=== PATIENT | male | born 1990 | race Two or more races ===

== ENCOUNTER 2020-09-23 14:06 | Inpatient (IN) | payer MEDICAID, OTHER ==
[~2020-09-23] VITALS: Ht 175.3 cm; Wt 82.2 kg
[2020-09-23] MEDS ORDERED: SODIUM CHLORIDE 0.9% 1,000 ML IV ONE ×4 (14:30→15:45)
[2020-09-23 14:49] LABS: Basophils # (auto) 0.1 10 ^3/uL (0-0.2); Basophils % (auto) 0.5 % (0.0-2.0); Eosinophils # (auto) 0.1 10 ^3/uL (0-0.8); Eosinophils % (auto) 0.7 % (0.0-7.0); Hematocrit 44.1 % (41.0-53.0); Hemoglobin 14.8 g/dL (13.5-17.5); Lymphocytes # (auto) 2.1 10 ^3/uL (0.4-5.4); Lymphocytes % (auto) 19.3 % (10.0-50.0); Mean Corpuscular Hemoglobin 29.8 pg (28.0-32.0); Mean Corpuscular Hgb Conc. 33.5 g/dL (32.0-36.0); Mean Corpuscular Volume 89.1 fL (80.0-100.0); Monocytes # (auto) 1.2 10 ^3/uL (0-1.3); Monocytes % (auto) 10.7 % (0.0-12.0); Neutrophils # (auto) 7.7 10 ^3/uL (1.6-8.6); Neutrophils % (auto) 68.8 % (37.0-80.0); Nucleated Red Blood Cells % 0.1 %; Red Blood Cells 4.95 10^6/uL (4.5-5.90); Red Cell Distribution Width 15.1 % (11.8-14.3); White Blood Cell 11.1 10^3/uL (4.4-10.8)
[2020-09-23 15:08] LABS: Albumin 3.2 g/dL (3.4-5.0); Anion Gap 19 (5-15); Blood Urea Nitrogen 18 mg/dL (7-18); Calcium 8.8 mg/dL (8.5-10.1); Carbon Dioxide 10 mmol/L (21-32); Chloride 94 mmol/L (98-107); Potassium 3.5 mmol/L (3.5-5.1); Sodium 123 mmol/L (136-145)
[2020-09-23 15:16] LABS: Alanine Aminotransferase 16 U/L (16-61); Alkaline Phosphatase 128 U/L (45-117); Aspartate Aminotransferase 6 U/L (15-37); Bilirubin, Total 1.2 mg/dL (0.2-1.0); GFR African American 63 mL/min; GFR Non-African American 52 mL/min; Total Protein 7.5 g/dL (6.4-8.2)
[2020-09-23 15:23] LABS: Glucose 869 mg/dL (74-106)
[2020-09-23] MEDS ORDERED: INSULIN LANTUS (GLARGINE) 1 /0.01ml (100units/ml) SC ONE (15:45)
[2020-09-23] MEDS ORDERED: InsuLIN R (HUMAN) 100 UNITS in SODIUM CHL 0.9% 99 ML IV SCH ×2 (15:45→18:15)
[2020-09-23] MEDS ORDERED: DEXTROSE (50%) 50ML SYRG IV PRN ×2 (15:45→18:15)
[2020-09-23] MEDS ORDERED: cefTRIAXone 1GM/50ML D5W 50 ML IV ONE (16:45)
[2020-09-23] MEDS ORDERED: NITROGLYCERIN 0.4 MG SL TAB SL PRN (16:45)
[2020-09-23] MEDS ORDERED: MORPHINE SULF INJ 2 MG/ML SYRINGE 1ML IV PRN (16:45)
[2020-09-23] MEDS: ACCU-CHEK COMFORT CURVE STRIP VI SCH ×4 (17:34→21:00)
[2020-09-23 18:12] LABS: Urine WBC None Seen /hpf (0 - 3)
[2020-09-23] MEDS ORDERED: PROMETHAZINE HCL 25 MG/ML 1ML IV PRN (18:15)
[2020-09-23] MEDS ORDERED: traMADol HCL 50 MG TAB PO PRN (18:15)
[2020-09-23] MEDS ORDERED: ACETAMINOPHEN 500 MG TAB PO PRN (18:15)
[2020-09-23] MEDS: SODIUM CHLORIDE 0.9% 1,000 ML IV SCH (18:15)
[2020-09-23 18:40] LABS: Alcohol, Urine < 3.0 mg/dL (0-10); Amphetamine Screen, Urine NEGATIVE (NEGATIVE); Barbiturate Scree,Urine NEGATIVE (NEGATIVE); Benzodiazephine Screen, Urine NEGATIVE (NEGATIVE); Cannabinoid Screen, Urine NEGATIVE (NEGATIVE); Cocaine Screen, Urine NEGATIVE (NEGATIVE); Opiate Scree,Urine NEGATIVE (NEGATIVE); Phencyclidine Screen, Urine NEGATIVE (NEGATIVE)
[2020-09-23 19:12] LABS: Urine Bacteria NONE SEEN /hpf (None Seen); Urine Blood Negative /uL (Negative); Urine Hyaline Cast FEW /lpf (0 - 2); Urine Mucus FEW (None Seen); Urine Specific Gravity 1.018 (1.001-1.035)
[2020-09-23] MEDS ORDERED: ACCU-CHEK COMFORT CURVE STRIP VI SCH (19:30)
[2020-09-23 20:30] LABS: BUN/Creatinine Ratio 10.6; Calcium 7.8 mg/dL (8.5-10.1)
[2020-09-23 20:32] LABS: Potassium 2.2 mmol/L (3.5-5.1)
[2020-09-23] MEDS ORDERED: POTASSIUM CHL 20MEQ/100ML 100 ML IV ONE (20:39)
[2020-09-23] MEDS: POTASSIUM CHL 20MEQ/100ML 100 ML IV SCH ×2 (20:45→23:00)
[2020-09-23] MEDS ORDERED: SODIUM CHLORIDE 0.9% 1,000 ML IV SCH (22:15)
[2020-09-24] VITALS (7 sets, daily range): BP systolic 98–124; BP diastolic 57–80
[2020-09-24] MEDS: SODIUM CHLORIDE 0.9% 1,000 ML IV SCH ×4 (00:30→12:51)
[2020-09-24] MEDS: ACCU-CHEK COMFORT CURVE STRIP VI SCH ×7 (00:31→21:28)
[2020-09-24 01:03] LABS: BUN/Creatinine Ratio 8.3; Calcium 7.5 mg/dL (8.5-10.1)
[2020-09-24 01:10] LABS: Potassium 2.5 mmol/L (3.5-5.1)
[2020-09-24] MEDS ORDERED: POTASSIUM CHL 20 Meq TABLET PO ONE ×3 (01:45→20:45)
[2020-09-24 03:51] LABS: Albumin 2.5 g/dL (3.4-5.0); Calcium 6.7 mg/dL (8.5-10.1)
[2020-09-24 03:55] LABS: BUN/Creatinine Ratio 9.5
[2020-09-24 03:57] LABS: Total Protein 5.3 g/dL (6.4-8.2)
[2020-09-24 04:53] LABS: Potassium 2.3 mmol/L (3.5-5.1)
[2020-09-24] MEDS ORDERED: POTASSIUM CHL 20MEQ/100ML 100 ML IV ONE ×3 (04:58→20:45)
[2020-09-24] MEDS: POTASSIUM CHL 20MEQ/100ML 100 ML IV SCH ×3 (05:24→10:25)
[2020-09-24 07:24] LABS: Calcium 7.6 mg/dL (8.5-10.1)
[2020-09-24 07:26] LABS: BUN/Creatinine Ratio 7.9
[2020-09-24 07:47] LABS: Potassium 2.6 mmol/L (3.5-5.1)
[2020-09-24] MEDS: InsuLIN REG 1unit/0.01ml Soln (100units/ml) SC SCH ×4 (08:30→20:00)
[2020-09-24] MEDS ORDERED: INSULIN LANTUS (GLARGINE) 1 /0.01ml (100units/ml) SC SCH ×3 (10:00→22:00)
[2020-09-24] MEDS ORDERED: ALBU108A5 IN (10:51)
[2020-09-24] MEDS ORDERED: MULT-1047 PO (10:51)
[2020-09-24] MEDS ORDERED: ALBUTEROL SULF 2.5 MG/0.5ML(0.5%) NEB SOLN NEB PRN (12:00)
[2020-09-24 12:48] LABS: BUN/Creatinine Ratio 9.6; Calcium 8.5 mg/dL (8.5-10.1); Magnesium 1.9 mg/dL (1.6-2.6)
[2020-09-24 12:56] LABS: Potassium 2.9 mmol/L (3.5-5.1)
[2020-09-24] MEDS: metFORMIN HYDROCHLORIDE 850 MG TAB PO SCH (19:13)
[2020-09-25] MEDS: SODIUM CHLORIDE 0.9% 1,000 ML IV SCH (00:01)
[2020-09-25] MEDS: ACCU-CHEK COMFORT CURVE STRIP VI SCH ×6 (00:07→22:14)
[2020-09-25] MEDS: InsuLIN REG 1unit/0.01ml Soln (100units/ml) SC SCH ×6 (00:10→21:44)
[2020-09-25 05:23] VITALS: BP 112/78
[2020-09-25 06:30] LABS: Basophils # (auto) 0 10 ^3/uL (0-0.2); Basophils % (auto) 0.5 % (0.0-2.0); Eosinophils # (auto) 0.1 10 ^3/uL (0-0.8); Eosinophils % (auto) 1.6 % (0.0-7.0); Hematocrit 37.4 % (41.0-53.0); Hemoglobin 13.4 g/dL (13.5-17.5); Lymphocytes # (auto) 2.3 10 ^3/uL (0.4-5.4); Lymphocytes % (auto) 27.3 % (10.0-50.0); Mean Corpuscular Hemoglobin 30.4 pg (28.0-32.0); Mean Corpuscular Hgb Conc. 35.9 g/dL (32.0-36.0); Mean Corpuscular Volume 84.5 fL (80.0-100.0); Monocytes # (auto) 0.9 10 ^3/uL (0-1.3); Monocytes % (auto) 10.7 % (0.0-12.0); Neutrophils # (auto) 5.1 10 ^3/uL (1.6-8.6); Neutrophils % (auto) 59.9 % (37.0-80.0); Red Blood Cells 4.42 10^6/uL (4.5-5.90); Red Cell Distribution Width 15.5 % (11.8-14.3); White Blood Cell 8.5 10^3/uL (4.4-10.8)
[2020-09-25 06:43] LABS: Calcium 8.3 mg/dL (8.5-10.1); Magnesium 1.8 mg/dL (1.6-2.6)
[2020-09-25 06:50] LABS: Albumin 2.6 g/dL (3.4-5.0); BUN/Creatinine Ratio 10.8
[2020-09-25 07:03] LABS: Potassium 2.8 mmol/L (3.5-5.1)
[2020-09-25] MEDS ORDERED: POTASSIUM CHL 20MEQ/100ML 100 ML IV ONE (07:45)
[2020-09-25] MEDS ORDERED: POTASSIUM CHL 20 Meq TABLET PO ONE ×2 (07:45)
[2020-09-25] MEDS: metFORMIN HYDROCHLORIDE 850 MG TAB PO SCH (08:06)
[2020-09-25 09:00] VITALS: BP 131/96
[2020-09-25] MEDS: POTASSIUM CHL 20 Meq TABLET PO SCH (09:48)
[2020-09-25] MEDS ORDERED: DEXTROSE (50%) 50ML SYRG IV PRN ×2 (11:30)
[2020-09-25] MEDS ORDERED: MAGNESIUM SULFATE 1GM/100ML 100 ML IV ONE (11:30)
[2020-09-25 13:00] VITALS: BP 136/76
[2020-09-25 17:00] VITALS: BP 105/58
[2020-09-25] MEDS: AMIODARONE HCL 200 MG TAB PO SCH (21:37)
[2020-09-25] MEDS ORDERED: INSULIN LANTUS (GLARGINE) 1 /0.01ml (100units/ml) SC SCH (22:00)
[2020-09-25 22:28] VITALS: BP 99/56
[2020-09-25] MEDS: SACUBITRIL-VALSARTAN 24mg/26mg TAB PO SCH (22:44)
[2020-09-25 22:47] VITALS: BP 121/67
[2020-09-26 05:29] VITALS: BP 96/59
[2020-09-26 05:41] LABS: Magnesium 2.3 mg/dL (1.6-2.6)
[2020-09-26 06:17] LABS: Potassium 2.9 mmol/L (3.5-5.1)
[2020-09-26] MEDS: InsuLIN REG 1unit/0.01ml Soln (100units/ml) SC SCH ×4 (06:23→23:17)
[2020-09-26] MEDS: ACCU-CHEK COMFORT CURVE STRIP VI SCH ×4 (06:23→23:16)
[2020-09-26] MEDS ORDERED: POTASSIUM CHL 20MEQ/100ML 100 ML IV ONE (06:45)
[2020-09-26 08:57] VITALS: BP 101/46
[2020-09-26] MEDS ORDERED: POTASSIUM CHL 20 Meq TABLET PO ONE ×2 (09:00→14:00)
[2020-09-26] MEDS: AMIODARONE HCL 200 MG TAB PO SCH ×2 (09:22→23:15)
[2020-09-26] MEDS: POTASSIUM CHL 20 Meq TABLET PO SCH (09:22)
[2020-09-26] MEDS: SACUBITRIL-VALSARTAN 24mg/26mg TAB PO SCH ×2 (09:22→23:24)
[2020-09-26] MEDS ORDERED: FUROSEMIDE 40 MG/4 ML VIAL ONE (12:38)
[2020-09-26] MEDS ORDERED: IOHEXOL 350 MG/ML 100ML IJ ONE (12:44)
[2020-09-26 13:00] VITALS: BP 99/59
[2020-09-26] MEDS: METOPROLOL TARTRATE 1MG/1ML-5ML VIAL IV SCH ×3 (13:00→13:10)
[2020-09-26] MEDS ORDERED: LORazepam 0.5 MG TAB PO PRN (14:00)
[2020-09-26] MEDS ORDERED: MIDAZOLAM DRIP 50 mg/50mL 50 ML IV ONE (14:20)
[2020-09-26] MEDS ORDERED: NOREPINEPHRINE 8 MG/250ML KIT 250 ML IV ONE (14:20)
[2020-09-26] MEDS ORDERED: MIDAZOLAM HCL 5 MG/ML-1ML VIAL ONE (14:20)
[2020-09-26 16:55] VITALS: BP 90/50
[2020-09-26 22:00] VITALS: BP 96/62
[2020-09-26] MEDS ORDERED: INSULIN LANTUS (GLARGINE) 1 /0.01ml (100units/ml) SC SCH (22:00)
[2020-09-27 05:00] VITALS: BP 97/70
[2020-09-27] MEDS ORDERED: LORazepam 0.5 MG TAB PO PRN (05:15)
[2020-09-27] MEDS: ACCU-CHEK COMFORT CURVE STRIP VI SCH ×2 (06:16→12:18)
[2020-09-27] MEDS: InsuLIN REG 1unit/0.01ml Soln (100units/ml) SC SCH ×2 (06:18→12:17)
[2020-09-27 08:15] VITALS: BP 105/57
[2020-09-27 09:00] VITALS: BP 105/57
[2020-09-27 09:45] VITALS: BP 97/70
[2020-09-27] MEDS: AMIODARONE HCL 200 MG TAB PO SCH (10:51)
[2020-09-27] MEDS: SACUBITRIL-VALSARTAN 24mg/26mg TAB PO SCH (10:52)
[2020-09-27] MEDS: POTASSIUM CHL 20 Meq TABLET PO SCH (10:53)
[2020-09-27 10:56] LABS: Potassium 3.2 mmol/L (3.5-5.1)
[2020-09-27] MEDS ORDERED: AMIO200T33 PO (11:25)
[2020-09-27] MEDS ORDERED: METF-371 PO (11:25)
[2020-09-27] MEDS ORDERED: INSLANTI SC (11:25)
[2020-09-27] MEDS ORDERED: SACU1TAB PO (11:25)
[2020-09-27] MEDS ORDERED: ALBUAER3 IN (11:25)
[2020-09-27] MEDS ORDERED: POTASSIUM CHL 20 Meq TABLET PO ONE ×2 (11:30)
[2020-09-27 12:37] VITALS: BP 105/57
[2020-09-27 13:00] VITALS: BP 98/50
== END 2020-09-27 16:33 | disposition home or self-care (01) | DRG 420 ==
LOC: ER 14:06 → TELE 16:44 → TELE-CENTR 09-24 09:06
PROVIDERS: ADMIT Internal Medicine; ATTEND Internal Medicine
DX: E11.10 Type 2 diabetes mellitus with ketoacidosis without coma (principal); N17.0 Acute kidney failure with tubular necrosis; I47.2 Ventricular tachycardia; I27.20 Pulmonary hypertension, unspecified; I42.9 Cardiomyopathy, unspecified; R65.10 Systemic inflammatory response syndrome (SIRS) of non-infectious origin without acute organ dysfunction; E86.0 Dehydration; Z20.822 Contact with and (suspected) exposure to COVID-19; E66.3 Overweight; E87.6 Hypokalemia; F12.90 Cannabis use, unspecified, uncomplicated; F17.200 Nicotine dependence, unspecified, uncomplicated; F43.10 Post-traumatic stress disorder, unspecified; J45.909 Unspecified asthma, uncomplicated; Z68.26 Body mass index [BMI] 26.0-26.9, adult; Z71.6 Tobacco abuse counseling
CPT/HCPCS: 36415; 36600; 71045; 75571; 75574; 80048; 80053; 80061; 80307; 81001; 82010; 82805; 82962; 83036; 83735; 83880; 84132; 84443; 84484; 85025; 85652; 87040; 87086; 87426; 93306; 96360; 96361; 99291; G0378; J0696; J1815; J2250; J3480